=== PATIENT | female | born 2000 | race American Indian/Alaskan Native ===

== ENCOUNTER 2021-09-27 10:27 | Outpatient (CLI) | payer MEDICAID ==
[2021-09-27] MEDS ORDERED: LACTATED RINGERS 500 ML IV ONE (11:00)
[2021-09-27 11:20] VITALS: BP 123/57
[2021-09-27 11:49] LABS: Bilirubin,Urine NEG (Negative); Blood,Urine NEG (Negative); Color,Urine Straw (Yellow); Mucus,Urine FEW /HPF; Protein,Urine <15 mg/dL mg/dL (Negative); Urobilinogen,Urine < 2.0 mg/dL (<2.0)
== END 2021-09-27 12:34 | disposition home or self-care (01) ==
LOC: TRG 10:27 → APU 10:29 → TRG 12:34
PROVIDERS: ATTEND Student in an Organized Health Care Education/Training Program
DX: O26.892 Other specified pregnancy related conditions, second trimester (principal); R10.11 Right upper quadrant pain; Z3A.25 25 weeks gestation of pregnancy
CPT/HCPCS: 59025; 81001